=== PATIENT | female | born 1965 | race Caucasian/White ===

== ENCOUNTER 2021-01-30 14:14 | Emergency (ER) | payer SELFPAY ==
[~2021-01-30] VITALS: Ht 172.7 cm; Wt 81.0 kg
[2021-01-30 15:00] LABS: BASOPHILS % 0.3 % (0.0-2.0); EOSINOPHILS % 2.3 % (0.0-5.0); HEMATOCRIT. 42.4 % (36.0-48.0); HEMOGLOBIN. 13.9 g/dL (12.0-16.0); LYMPHOCYTES % 28.8 % (20.0-50.0); MEAN CORPUSCULAR HEMOGLOBIN 27.1 pg (28.0-32.0); MEAN CORPUSCULAR VOLUME 82.7 fL (81.0-99.0); MEAN PLATELET VOLUME 9.7 fl (7.4-10.4); MONOCYTES % 5.6 % (2.0-8.0); PLATELET 213 x1000/uL (130-400); RED BLOOD CELL COUNT 5.12 mill/uL (4.2-5.4); RED CELL DISTRIBUTION WIDTH 14.4 % (11.6-14.6)
[2021-01-30 15:04] LABS: CHLORIDE 109 mEq/L (98-107)
[2021-01-30] MEDS: ONDANSETRON 4MG ODT PO STA (15:20)
[2021-01-30] MEDS ORDERED: ONDA4TAB11 PO (15:55)
[2021-01-30 16:28] VITALS: BP 128/74
== END 2021-01-30 16:31 | disposition home or self-care (01) ==
LOC: ER 14:14
DX: F43.0 Acute stress reaction (principal); Z88.0 Allergy status to penicillin; Z88.1 Allergy status to other antibiotic agents
CPT/HCPCS: 36415; 71045; 80053; 84484; 85025; 93005; 99285; Q0162; Z7610